=== PATIENT | female | born 1925 | race Caucasian/White ===

== ENCOUNTER → 2016-10-24 | Outpatient (REF) | payer MEDICARE, OTHER ==
[2016-10-24 12:59] LABS: ALBUMIN 2.9 GM/DL (3.2-5.2); ALBUMIN/GLOBULIN RATIO 1.12 (1.00-1.93); ALKALINE PHOSPHATASE 70 U/L (45-117); ALT/SGPT 15 U/L (12-78); ANION GAP 8 MEQ/L (8-16); AST/SGOT 12 U/L (15-37); BILIRUBIN,TOTAL 0.7 MG/DL (0.2-1.0); BLOOD UREA NITROGEN 16 MG/DL (7-18); CALCIUM LEVEL 8.1 MG/DL (8.8-10.2); CARBON DIOXIDE LEVEL 30 MEQ/L (21-32); CHLORIDE LEVEL 108 MEQ/L (98-107); CHOLESTEROL LEVEL 175 MG/DL (<200); CREATININE FOR GFR 0.93 MG/DL (0.55-1.02); GLOMERULAR FILTRATION RATE > 60.0 (>32); GLUCOSE, FASTING 83 MG/DL (83-110); SODIUM LEVEL 146 MEQ/L (136-145); TOTAL PROTEIN 5.5 GM/DL (6.4-8.2); TRIGLYCERIDES LEVEL 122 MG/DL (<150)
[2016-10-24 13:32] LABS: BASO % 0.4 % (0.0-1.0); EOS # 0.1 K/mm3 (0.0-0.50); EOS % 2.7 % (0.0-3.0); LARGE UNSTAINED CELL # 0.1 K/mm3 (0.0-0.4); LARGE UNSTAINED CELL % 1.9 % (0.0-4.0); LYMPH # 0.9 K/mm3 (1.5-4.5); LYMPH % 18.2 % (24.0-44.0); MEAN CORPUSCULAR HEMOGLOBIN 27.6 pg (27.0-33.0); MEAN CORPUSCULAR HGB CONC 30.8 g/dl (32.0-36.5); MEAN CORPUSCULAR VOLUME 89.7 fl (80.0-96.0); MONO # 0.3 K/mm3 (0.0-0.8); MONO % 6.5 % (0.0-5.0); NEUTROPHILS # 3.5 K/mm3 (1.8-7.7); NEUTROPHILS % 70.2 % (36.0-66.0); PLATELET COUNT, AUTOMATED 306 k/mm3 (150-450); RED CELL DISTRIBUTION WIDTH 13.7 % (11.5-14.5)
[2016-10-24 13:41] LABS: THYROID PEROXIDASE ANTIBODY 40.9 U/ML (<60.0)
== END ==
LOC: M SFHCPLAZ 08:06
PROVIDERS: ATTEND Family Medicine
DX: D50.9 Iron deficiency anemia, unspecified (principal); E78.5 Hyperlipidemia, unspecified

== ENCOUNTER 2017-04-15 09:33 | Emergency (ER) | payer MEDICARE, OTHER ==
[~2017-04-15] VITALS: Ht 160 cm; Wt 55.4 kg
[2017-04-15] MEDS ORDERED: VITA-193 (09:42)
[2017-04-15] MEDS ORDERED: FOLI1TAB4 (09:42)
[2017-04-15] MEDS ORDERED: ATOR40TA75 (09:42)
[2017-04-15] MEDS ORDERED: ASPI81TA85 PO (09:42)
[2017-04-15] MEDS ORDERED: POLY150C4 (09:42)
[2017-04-15] MEDS ORDERED: VITA1CAP40 (09:42)
[2017-04-15] MEDS ORDERED: LIDOCAINE 2% MDV 20 ML VIAL SC ONE (11:00)
[2017-04-15] MEDS ORDERED: ADACEL/BOOSTRIX VACCINE (DIPHTH/PERTUSS/ACELL/TETANUS)0.5ML SYR (90715) IM ONE (11:00)
[2017-04-15] MEDS ORDERED: AUGM875T28 PO (11:31)
[2017-04-15 12:40] VITALS: BP 143/73
--- NOTE | 2017-04-15 14:30 | REP ---
RIGHT HAND SERIES: Four views of the right hand are performed. There is no evidence of fracture or dislocation. No foreign body is seen in the soft tissues. There is diffuse osteopenia. Mild diffuse narrowing is seen at the proximal and distal interphalangeal joints as well as at the first, fourth and fifth metacarpophalangeal joints. IMPRESSION: No evidence of acute fracture or foreign body. Signed by Fede Chacon MD 04/15/2017 03:23 P
== END 2017-04-15 12:58 | disposition home or self-care (01) ==
LOC: M ED 09:33
DX: S61.256A Open bite of right little finger without damage to nail, initial encounter (principal); W54.0XXA Bitten by dog, initial encounter; Y92.009 Unspecified place in unspecified non-institutional (private) residence as the place of occurrence of the external cause; Y93.89 Activity, other specified; Y99.8 Other external cause status; Z79.899 Other long term (current) drug therapy; Z79.82 Long term (current) use of aspirin

== ENCOUNTER → 2017-05-09 | Outpatient (REF) | payer MEDICARE, OTHER ==
[~2017-05-09] MED LIST: ASPI81TA85 PO; ATOR40TA75; AUGM875T28 PO; FOLI1TAB4; POLY150C4; VITA-193; VITA1CAP40
[2017-05-09 12:11] LABS: BASO % 0.6 % (0.0-1.0); EOS # 0.2 K/mm3 (0.0-0.50); LARGE UNSTAINED CELL # 0.1 K/mm3 (0.0-0.4); LARGE UNSTAINED CELL % 1.4 % (0.0-4.0); LYMPH # 1.1 K/mm3 (1.5-4.5); LYMPH % 16.6 % (24.0-44.0); MEAN CORPUSCULAR HGB CONC 31.5 g/dl (32.0-36.5); MEAN CORPUSCULAR VOLUME 88.6 fl (80.0-96.0); MONO # 0.3 K/mm3 (0.0-0.8); MONO % 5.4 % (0.0-5.0); NEUTROPHILS # 4.6 K/mm3 (1.8-7.7); PLATELET COUNT, AUTOMATED 319 k/mm3 (150-450); RED CELL DISTRIBUTION WIDTH 14.7 % (11.5-14.5); WHITE BLOOD COUNT 6.3 K/mm3 (4.0-10.0)
[2017-05-09 12:53] LABS: VITAMIN B12 LEVEL 967 PG/ML (247-911)
[2017-05-09 13:53] LABS: ALBUMIN 2.8 GM/DL (3.2-5.2); ALBUMIN/GLOBULIN RATIO 1.17 (1.00-1.93); ALKALINE PHOSPHATASE 63 U/L (45-117); ALT/SGPT 12 U/L (12-78); ANION GAP 8 MEQ/L (8-16); AST/SGOT 8 U/L (15-37); BILIRUBIN,TOTAL 0.4 MG/DL (0.2-1.0); BLOOD UREA NITROGEN 18 MG/DL (7-18); CALCIUM LEVEL 8.5 MG/DL (8.8-10.2); CARBON DIOXIDE LEVEL 27 MEQ/L (21-32); CHLORIDE LEVEL 111 MEQ/L (98-107); CREATININE FOR GFR 0.88 MG/DL (0.55-1.02); FERRITIN 13 NG/ML (8-252); GLOMERULAR FILTRATION RATE > 60.0 (>32); GLUCOSE, FASTING 85 MG/DL (83-110); PERCENT SATURATION 10.8 % (13.2-45.0); POTASSIUM SERUM 4.6 MEQ/L (3.5-5.1); SODIUM LEVEL 146 MEQ/L (136-145); TOTAL IRON BINDING CAPACITY 277 UG/DL (250-450); TOTAL PROTEIN 5.2 GM/DL (6.4-8.2)
== END ==
LOC: M SFHCPLAZ 08:44
PROVIDERS: ATTEND Family Medicine
DX: E53.8 Deficiency of other specified B group vitamins (principal); D50.9 Iron deficiency anemia, unspecified

== ENCOUNTER → 2017-09-11 | Outpatient (REF) | payer MEDICARE, OTHER ==
[2017-09-11 11:47] LABS: BASO # 0.1 10^3/uL (0.0-0.2); EOS # 0.3 10^3/uL (0.0-0.50); EOS % 4.9 % (0.0-3.0); IMMATURE GRANULOCYTE % 0.7 % (0-0); LYMPH % 16.6 % (24.0-44.0); MEAN CORPUSCULAR HEMOGLOBIN 27.9 pg (27.0-33.0); MEAN CORPUSCULAR HGB CONC 30.6 g/dl (32.0-36.5); MONO # 0.4 10^3/uL (0.0-0.8); MONO % 6.7 % (0.0-5.0); NEUTROPHILS # 4.2 10^3/uL (1.8-7.7); NEUTROPHILS % 70.1 % (36.0-66.0); PLATELET COUNT, AUTOMATED 223 10^3/uL (150-450); RED CELL DISTRIBUTION WIDTH 15.2 % (11.5-14.5)
[2017-09-11 12:18] LABS: ALBUMIN 2.9 GM/DL (3.2-5.2); ALBUMIN/GLOBULIN RATIO 1.04 (1.00-1.93); BILIRUBIN,TOTAL 0.7 MG/DL (0.2-1.0); CALCIUM LEVEL 8.8 MG/DL (8.8-10.2); CREATININE FOR GFR 0.98 MG/DL (0.55-1.02); FREE T4 1.02 NG/DL (0.76-1.46); GLOMERULAR FILTRATION RATE 56.9 (>32); POTASSIUM SERUM 4.3 MEQ/L (3.5-5.1); TOTAL PROTEIN 5.7 GM/DL (6.4-8.2)
[2017-09-12 10:14] LABS: PRETREATED FOLATE FOR RBCFOL 12.6 NG/ML
[2017-09-12 10:23] LABS: CARCINOEMBRYONIC ANTIGEN 1.1 NG/ML (<2.5)
[2017-09-12 10:51] LABS: CA 125 7.5 U/ML (<30.2)
== END ==
LOC: M SFHCPLAZ 08:10
PROVIDERS: ATTEND Family Medicine
DX: K63.9 Disease of intestine, unspecified (principal); D50.9 Iron deficiency anemia, unspecified; E55.9 Vitamin D deficiency, unspecified; E78.5 Hyperlipidemia, unspecified; E53.8 Deficiency of other specified B group vitamins